=== PATIENT | male | born 1965 | race Two or more races ===

== ENCOUNTER 2017-10-29 08:13 | Emergency (ER) | payer MEDICAID ==
[2017-10-29 08:27] VITALS: BP 159/75
[2017-10-29] MEDS ORDERED: LORazepam 0.5 MG TAB PO ONE (08:30)
[2017-10-29 08:49] LABS: Basophils # (auto) 0.1 uL; Basophils % (auto) 0.7 % (0.0-2.0); Eosinophils # (auto) 0.2 uL; Eosinophils % (auto) 2.7 % (0.0-7.0); Hematocrit 42.9 % (41.0-53.0); Hemoglobin 14.5 g/dL (13.5-17.5); Lymphocytes # (auto) 2.1 uL; Lymphocytes % (auto) 28.4 % (10.0-50.0); Mean Corpuscular Hemoglobin 27.8 pg (28.0-32.0); Mean Corpuscular Hgb Conc. 33.7 g/dL (32.0-36.0); Mean Corpuscular Volume 82.6 fL (80.0-100.0); Monocytes # (auto) 0.6 uL; Monocytes % (auto) 8.6 % (0.0-12.0); Neutrophils # (auto) 4.4 uL; Neutrophils % (auto) 59.6 % (37.0-80.0); Nucleated Red Blood Cells % 0.1 %; Platelet Count (auto) 319 10^3/uL (140-450); Red Cell Distribution Width 14.8 % (11.8-14.3); White Blood Cell 7.3 10^3/uL (4.4-10.8)
[2017-10-29 09:09] LABS: Albumin 3.2 g/dL (3.4-5.0); Bilirubin, Total 0.3 mg/dL (0.2-1.0); Calcium 8.7 mg/dL (8.5-10.1); Potassium 4.5 mmol/L (3.5-5.1); Total Protein 8.9 g/dL (6.4-8.2)
== END 2017-10-29 09:47 | disposition home or self-care (01) ==
LOC: ER 08:13
DX: R51 Headache (principal); I10 Essential (primary) hypertension
CPT/HCPCS: 36415; 70450; 80053; 85025

== ENCOUNTER 2017-10-31 19:59 | Emergency (ER) | payer MEDICAID ==
[~2017-10-31] VITALS: Ht 160 cm; Wt 63.5 kg
[2017-10-31 20:17] VITALS: BP 142/98
[2017-11-01] MEDS ORDERED: cefTRIAXone SOD 1,000 MG VL IM ONE (01:00)
[2017-11-01] MEDS ORDERED: DEXAMETHASONE SOD PHOS 10MG/1ML VIAL INJ IM ONE (01:00)
[2017-11-01] MEDS ORDERED: LIDOCAINE 1% (LOCAL ANESTH.) PF 5ml SDV ONE (01:31)
== END 2017-11-01 01:16 | disposition home or self-care (01) ==
LOC: ER 19:59
DX: J32.9 Chronic sinusitis, unspecified (principal); R51 Headache
CPT/HCPCS: 96372; 99284; J0696; J1100

== ENCOUNTER 2017-12-09 17:58 | Emergency (ER) | payer MEDICAID ==
[~2017-12-09] VITALS: Ht 157.5 cm; Wt 64.4 kg
[2017-12-09 23:45] VITALS: BP 144/102
[2017-12-10] MEDS ORDERED: HYDROcodone-ACET 5/325MG TAB PO ONE (00:15)
[2017-12-10] MEDS ORDERED: KETOROLAC TROMETH 30 MG/ML 1ML VIAL IV ONE (00:15)
[2017-12-10] MEDS ORDERED: KETOROLAC TROMETH 30 MG/ML 1ML VIAL IM ONE (00:30)
== END 2017-12-10 01:44 | disposition home or self-care (01) ==
LOC: ER 17:58
DX: G43.909 Migraine, unspecified, not intractable, without status migrainosus (principal); I10 Essential (primary) hypertension
CPT/HCPCS: 96372; 99283; J1885